=== PATIENT | female | born 1985 | race Caucasian/White ===

== ENCOUNTER 2019-02-03 13:34 | Emergency (ER) | payer BC, MEDICAID ==
[~2019-02-03] VITALS: Ht 160 cm; Wt 53.6 kg
[~2019-02-03 13:34] MED LIST: AZIT250T PO; CYCL5TAB11 PO; HYDR-4383 PO; IBUP-1985 PO
[2019-02-03] MEDS ORDERED: ondansetron 4mg rapidly disintigrating tab PO ONE (14:15)
[2019-02-03] MEDS ORDERED: aspirin 81mg tab.chew PO ONE (14:15)
[2019-02-03] MEDS ORDERED: acetaminophen 325mg tablet PO ONE (14:20)
[2019-02-03] MEDS ORDERED: metoclopramide 10mg tablet PO ONE (14:20)
[2019-02-03 14:38] LABS: BASOPHILS % (AUTO) 0.5 % (0-1); EOSINOPHILS # (AUTO) 0.3 X10'3 (0-0.9); EOSINOPHILS % (AUTO) 5.6 % (0-6); HEMATOCRIT 44.9 % (35.0-45.0); HEMOGLOBIN 15.4 g/dl (12.0-16.0); LYMPHOCYTES # (AUTO) 1.6 X10'3 (1.1-4.8); LYMPHOCYTES % (AUTO) 33.4 % (21-51); MEAN CORPUSCULAR HEMOGLOBIN 33.1 PG (27.0-31.0); MEAN CORPUSCULAR HGB CONC 34.3 g/dL (33.0-36.5); MEAN CORPUSCULAR VOLUME 96.3 FL (78-98); MONOCYTES # (AUTO) 0.3 X10'3 (0-0.9); NEUTROPHILS # (AUTO) 2.5 X10'3 (1.8-7.7); NEUTROPHILS % (AUTO) 53.5 % (42-75); PLATELET COUNT 201 X10'3 (140-440); RED BLOOD COUNT 4.66 X10'6 (4.20-5.60); RED CELL DISTRIBUTION WIDTH 12.1 % (11.5-14.5); WHITE BLOOD COUNT 4.7 X10'3 (4.5-11.0)
--- NOTE | 2019-02-03 14:51 | NUR ---
patient has done a holter monitor and had an echo in August 2018
[2019-02-03 14:59] LABS: ALANINE AMINOTRANSFERASE 19 U/L (12-78); ALBUMIN 4.2 G/DL (3.4-5.0); ALBUMIN/GLOBULIN RATIO 1.3 (1.1-1.5); ALKALINE PHOSPHATASE 71 IU/L (46-116); ANION GAP 11 (8-16); ASPARTATE AMINO TRANSFERASE 12 U/L (10-37); BILIRUBIN,TOTAL 0.9 MG/DL (0.1-1.0); BLOOD UREA NITROGEN 9 MG/DL (7-18); CALCIUM 9.4 MG/DL (8.5-10.1); CHLORIDE 105 MMOL/L (99-107); CREATININE 0.82 MG/DL (0.40-0.90); GLUCOSE 90 MG/DL (70-104); MAGNESIUM 1.9 MG/DL (1.5-2.4); POTASSIUM 3.5 MMOL/L (3.5-5.1); SODIUM 144 MMOL/L (135-145); TOTAL PROTEIN 7.4 G/DL (6.4-8.2); eGFR 80 ML/MIN
[2019-02-03 15:01] LABS: D-DIMER < 0.19 MG/L FEU (0-0.50)
[2019-02-03] MEDS ORDERED: METO5TAB98 PO (15:37)
--- NOTE | 2019-02-03 16:03 | NUR ---
PER DR FERREIRA, DO NOT DISCHARGE UNTIL UA RESULTED
[2019-02-03 16:08] LABS: URINE HCG NEGATIVE (NEG)
[2019-02-03 16:12] LABS: CLARITY,URINE SLIGHTLY CLOUDY (Clear); COLOR,URINE YELLOW (Yellow); GLUCOSE, URINE NEGATIVE (Neg); KETONES,URINE NEGATIVE (Neg); LEUKOCYTE ESTERASE ,URINE TRACE (Neg); NITRITES, URINE NEGATIVE (Neg); OCCULT BLOOD,URINE LARGE (Neg); PROTEIN,URINE NEGATIVE (Neg); UROBILINOGEN,URINE 0.2 E.U/dL (0.2-1.0)
[2019-02-03 16:15] LABS: UA COLLECTION TYPE CLN CATCH MIDSTREAM
[2019-02-03 16:33] LABS: RBC,URINE 0-2 /HPF (0-2); SQUAMOUS EPITHELIAL CELL,UR MANY /LPF (FEW)
[2019-02-03 16:34] LABS: BACTERIA,URINE 2+ /HPF (Neg)
[2019-02-03 16:48] VITALS: BP 114/82
== END 2019-02-03 16:59 | disposition home or self-care (01) ==
LOC: ER 13:34
DX: R00.2 Palpitations (principal); Z88.1 Allergy status to other antibiotic agents; Z79.2 Long term (current) use of antibiotics; Z79.899 Other long term (current) drug therapy
CPT/HCPCS: 36415; 71045; 80053; 81001; 81025; 83735; 84484; 85025; 85379; 93005; 99284; J8597

== ENCOUNTER 2020-06-06 14:24 | Emergency (ER) | payer BC, MEDICAID ==
[~2020-06-06] VITALS: Ht 160 cm; Wt 56.0 kg
[2020-06-06 14:34] VITALS: BP 128/91
== END 2020-06-06 15:18 | disposition home or self-care (01) ==
LOC: ER 14:25
DX: B34.9 Viral infection, unspecified (principal); R11.0 Nausea; R51.9 Headache, unspecified; R07.89 Other chest pain; R06.02 Shortness of breath; R43.8 Other disturbances of smell and taste; Z20.828 Contact with and (suspected) exposure to other viral communicable diseases; F41.9 Anxiety disorder, unspecified; F32.9 Major depressive disorder, single episode, unspecified; F17.200 Nicotine dependence, unspecified, uncomplicated; Z72.89 Other problems related to lifestyle; Z88.1 Allergy status to other antibiotic agents; Z79.2 Long term (current) use of antibiotics; Z79.899 Other long term (current) drug therapy
CPT/HCPCS: 36415; 87635; 93005; 99284

== ENCOUNTER 2020-08-03 10:11 | Emergency (ER) | payer MEDICAID ==
[~2020-08-03] VITALS: Ht 160 cm; Wt 54.5 kg
[2020-08-03 11:01] LABS: URINE HCG NEGATIVE (NEG)
[2020-08-03 11:01] LABS: EOSINOPHILS # (AUTO) 0.3 X10'3 (0-0.9); MEAN PLATELET VOLUME 9.9 FL (7.4-10.4)
[2020-08-03 11:02] LABS: BASOPHILS % (AUTO) 0.4 % (0-1); EOSINOPHILS % (AUTO) 4.1 % (0-6); HEMATOCRIT 42.7 % (35.0-45.0); HEMOGLOBIN 14.2 g/dl (12.0-16.0); LYMPHOCYTES # (AUTO) 1.4 X10'3 (1.1-4.8); LYMPHOCYTES % (AUTO) 18.5 % (21-51); MEAN CORPUSCULAR HEMOGLOBIN 31.6 PG (27.0-31.0); MEAN CORPUSCULAR HGB CONC 33.2 g/dL (33.0-36.5); MEAN CORPUSCULAR VOLUME 95.3 FL (78-98); MONOCYTES # (AUTO) 0.6 X10'3 (0-0.9); MONOCYTES % (AUTO) 8.2 % (2-12); NEUTROPHILS # (AUTO) 5.4 X10'3 (1.8-7.7); NEUTROPHILS % (AUTO) 68.8 % (42-75); PLATELET COUNT 259 X10'3 (140-440); RED BLOOD COUNT 4.48 X10'6 (4.20-5.60); RED CELL DISTRIBUTION WIDTH 13.1 % (11.5-14.5); WHITE BLOOD COUNT 7.8 X10'3 (4.5-11.0)
[2020-08-03 11:03] LABS: CLARITY,URINE SLIGHTLY CLOUDY (Clear); COLOR,URINE ORANGE (Yellow)
[2020-08-03] MEDS ORDERED: ketorolac tromethamine 15mg/ml inj. IV ONE (11:10)
[2020-08-03] MEDS ORDERED: normal saline 1000ML IV soln IVB ONE (11:10)
[2020-08-03 11:13] LABS: ALANINE AMINOTRANSFERASE 16 U/L (12-78); ALBUMIN 3.6 G/DL (3.4-5.0); ALBUMIN/GLOBULIN RATIO 0.9 (1.1-1.5); ALKALINE PHOSPHATASE 119 IU/L (46-116); ANION GAP 7 (8-16); ASPARTATE AMINO TRANSFERASE 14 U/L (10-37); BILIRUBIN,TOTAL 0.5 MG/DL (0.1-1.0); BLOOD UREA NITROGEN 12 MG/DL (7-18); BUN/CREATININE RATIO 15.8 (6.6-38.0); CALCIUM 9.1 MG/DL (8.5-10.1); CHLORIDE 104 MMOL/L (99-107); CREATININE 0.76 MG/DL (0.40-0.90); GLUCOSE 93 MG/DL (70-104); POTASSIUM 4.1 MMOL/L (3.5-5.1); SODIUM 139 MMOL/L (135-145); TOTAL PROTEIN 7.6 G/DL (6.4-8.2); eGFR 87 ML/MIN
[2020-08-03 11:14] LABS: LIPASE 86 U/L (73-393)
[2020-08-03 11:19] LABS: UA COLLECTION TYPE VOIDED
[2020-08-03 11:21] LABS: BACTERIA,URINE FEW /HPF (Neg); MUCUS STRANDS NONE SEEN /LPF (Neg); RBC,URINE 0-2 /HPF (0-2); SQUAMOUS EPITHELIAL CELL,UR MODERATE /LPF (FEW); WBC,URINE 30-50 /HPF (0-4)
--- NOTE | 2020-08-03 11:47 | NUR ---
PEPITO REYNA IN ROOM AND PELVIC EXAM DONE, I VASYL
[2020-08-03] MEDS ORDERED: morphine 4 MG/ML inj SYRINge IV ONE (11:50)
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
[2020-08-03] MEDS ORDERED: CefTRIAXone 1000mg IM Kit (w/lidocaine diluent) IM STA (11:53)
[2020-08-03] MEDS ORDERED: DOXYCYCLINE 100MG CAPSULE PO ONE (11:55)
--- NOTE | 2020-08-03 12:06 | NUR ---
ULTRASOUND IN PROGRESS
--- NOTE | 2020-08-03 12:30 | NUR ---
ROME DAVID IN ROOM WITH PATIENT. RN PERCY TO COVER MY BREAK REPORT GIVEN
[2020-08-03] MEDS ORDERED: DOXY100C2 PO (12:39)
[2020-08-03 12:56] VITALS: BP 125/71
== END 2020-08-03 13:05 | disposition home or self-care (01) ==
LOC: ER 10:13
DX: N73.9 Female pelvic inflammatory disease, unspecified (principal); Z72.89 Other problems related to lifestyle; Z88.1 Allergy status to other antibiotic agents; Z79.2 Long term (current) use of antibiotics; Z79.899 Other long term (current) drug therapy
CPT/HCPCS: 76830; 76856; 80053; 81001; 81025; 83690; 85025; 87088; 87210; 93976; 96361; 96372; 96374; 96375; 99285; J0696; J1885; J2270; J7030; Q0112

== ENCOUNTER 2022-03-01 11:29 | Emergency (ER) | payer MEDICAID ==
[~2022-03-01] VITALS: Ht 160 cm; Wt 59.1 kg
[~2022-03-01 11:29] MED LIST changes: +ALBU8.5H17 IH
[2022-03-01 11:32] VITALS: BP 123/82
[2022-03-01] MEDS ORDERED: METR-159 PO (13:25)
== END 2022-03-01 13:37 | disposition home or self-care (01) ==
LOC: ER 11:29
DX: N76.0 Acute vaginitis (principal); Z88.1 Allergy status to other antibiotic agents
CPT/HCPCS: 87210; 99284; Q0112

== ENCOUNTER 2022-11-04 23:29 | Emergency (ER) | payer MEDICAID, OTHER ==
[~2022-11-04] VITALS: Ht 160 cm; Wt 56.2 kg
[2022-11-04 23:35] VITALS: BP 132/91
[2022-11-05 00:02] LABS: BASOPHILS % (AUTO) 1.2 % (0-1); EOSINOPHILS # (AUTO) 0.3 X10'3 (0-0.9); EOSINOPHILS % (AUTO) 7.1 % (0-6); HEMATOCRIT 36.4 % (35.0-45.0); HEMOGLOBIN 11.9 g/dl (12.0-16.0); LYMPHOCYTES # (AUTO) 1.8 X10'3 (1.1-4.8); LYMPHOCYTES % (AUTO) 46.1 % (21-51); MEAN CORPUSCULAR HEMOGLOBIN 27.2 PG (27.0-31.0); MEAN CORPUSCULAR HGB CONC 32.7 g/dL (33.0-36.5); MEAN CORPUSCULAR VOLUME 83.3 FL (78-98); MEAN PLATELET VOLUME 9.1 FL (7.4-10.4); MONOCYTES # (AUTO) 0.4 X10'3 (0-0.9); MONOCYTES % (AUTO) 9.3 % (2-12); NEUTROPHILS # (AUTO) 1.4 X10'3 (1.8-7.7); NEUTROPHILS % (AUTO) 36.3 % (42-75); PLATELET COUNT 269 X10'3 (140-440); RED BLOOD COUNT 4.37 X10'6 (4.20-5.60); RED CELL DISTRIBUTION WIDTH 18.9 % (11.5-14.5); WHITE BLOOD COUNT 3.8 X10'3 (4.5-11.0)
[2022-11-05 00:08] LABS: CLARITY,URINE SLIGHTLY CLOUDY (Clear); COLOR,URINE YELLOW (Yellow); GLUCOSE, URINE NEGATIVE (Neg); KETONES,URINE NEGATIVE (Neg); LEUKOCYTE ESTERASE ,URINE SMALL (Neg); NITRITES, URINE NEGATIVE (Neg); OCCULT BLOOD,URINE MODERATE (Neg); PROTEIN,URINE NEGATIVE (Neg); UROBILINOGEN,URINE 0.2 E.U/dL (0.2-1.0)
[2022-11-05 00:09] LABS: URINE HCG NEGATIVE (NEG)
[2022-11-05 00:20] LABS: ALANINE AMINOTRANSFERASE 21 U/L (12-78); ALBUMIN 4.1 G/DL (3.4-5.0); ALBUMIN/GLOBULIN RATIO 1.4 (1.1-1.5); ALKALINE PHOSPHATASE 73 IU/L (46-116); ANION GAP 9 (8-16); ASPARTATE AMINO TRANSFERASE 16 U/L (10-37); BILIRUBIN,TOTAL 0.3 MG/DL (0.1-1.0); BLOOD UREA NITROGEN 14 MG/DL (7-18); BUN/CREATININE RATIO 16.3 (10.0-20.0); CHLORIDE 104 MMOL/L (99-107); CREATININE 0.86 MG/DL (0.40-0.90); GLUCOSE 99 MG/DL (70-104); LIPASE 83 U/L (73-393); POTASSIUM 3.4 MMOL/L (3.5-5.1); SODIUM 142 MMOL/L (135-145); TOTAL CARBON DIOXIDE 28.6 MMOL/L (24-32); eGFR 74 ML/MIN
[2022-11-05 00:31] LABS: UA COLLECTION TYPE CLN CATCH MIDSTREAM; WBC,URINE 30-50 /HPF (0-4)
[2022-11-05 00:32] LABS: BACTERIA,URINE 2+ /HPF (Neg); MUCUS STRANDS FEW /LPF (Neg); SQUAMOUS EPITHELIAL CELL,UR FEW /LPF (FEW); TRANSITIONAL EPI CELLS,URINE FEW /HPF
[2022-11-05 00:33] LABS: YEAST FEW /HPF (NEGATIVE)
[2022-11-05 01:04] LABS: ANISOCYTOSIS 2+; ELLIPTOCYTES FEW; PLATELET ESTIMATE NORMAL
[2022-11-05] MEDS ORDERED: IVER3TAB2 PO (01:58)
== END 2022-11-05 02:06 | disposition home or self-care (01) ==
LOC: ER 23:30
DX: B88.9 Infestation, unspecified (principal); Z88.1 Allergy status to other antibiotic agents
CPT/HCPCS: 36415; 80053; 81001; 81003; 81025; 83690; 85008; 85025; 87077; 87088; 87186; 99283

== ENCOUNTER 2022-11-10 16:33 | Emergency (ER) | payer SELFPAY ==
[~2022-11-10] VITALS: Ht 160 cm; Wt 57.7 kg
[~2022-11-10 16:33] MED LIST changes: +IVER3TAB2 PO
[2022-11-10 16:39] VITALS: BP 148/103
[2022-11-10] MEDS ORDERED: ALBE200T10 PO (17:47)
== END 2022-11-10 18:00 | disposition home or self-care (01) ==
LOC: ER 16:34
DX: B89 Unspecified parasitic disease (principal); N39.0 Urinary tract infection, site not specified; R35.0 Frequency of micturition; R30.9 Painful micturition, unspecified; Z88.1 Allergy status to other antibiotic agents
CPT/HCPCS: 99283

== ENCOUNTER 2022-11-11 16:49 | Emergency (ER) | payer MEDICAID ==
[~2022-11-11] VITALS: Ht 160 cm; Wt 57.7 kg
[~2022-11-11 16:49] MED LIST changes: +ALBE200T10 PO
[2022-11-11 17:06] VITALS: BP 159/101
== END 2022-11-11 17:51 | disposition home or self-care (01) ==
LOC: ER 16:49
DX: Z76.0 Encounter for issue of repeat prescription (principal); Z88.1 Allergy status to other antibiotic agents
CPT/HCPCS: 99281

== ENCOUNTER 2024-12-02 06:35 | Emergency (ER) | payer MEDICAID ==
[~2024-12-02] VITALS: Ht 160 cm; Wt 54.5 kg
[2024-12-02 06:37] VITALS: BP 146/91; PULSE 92; RESP 18; TEMP 98.2; O2SAT 100
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
--- NOTE | 2024-12-02 07:22 | RADIOLOGY REPORT ---
CLINICAL INFORMATION: Right arm pain. TECHNIQUE: 2 views of the right forearm were obtained. COMPARISON: None FINDINGS: No acute fracture or dislocation. No significant arthropathy. Adjacent soft tissues are unr emarkable. IMPRESSION: No evidence of acute bony abnormality.
== END 2024-12-02 07:47 | disposition home or self-care (01) ==
LOC: ER 06:36
DX: S50.11XA Contusion of right forearm, initial encounter (principal); F41.9 Anxiety disorder, unspecified; F32.A Depression, unspecified; Z88.1 Allergy status to other antibiotic agents; Z79.899 Other long term (current) drug therapy; W22.8XXA Striking against or struck by other objects, initial encounter; Y93.89 Activity, other specified; Y92.89 Other specified places as the place of occurrence of the external cause; Y99.8 Other external cause status
CPT/HCPCS: 73090; 99283; A6449